=== PATIENT | female | born 1985 | race African-American/Black ===

== ENCOUNTER 2017-05-06 19:21 | Emergency (ER) | payer MEDICAID, OTHER ==
[~2017-05-06] VITALS: Ht 162.6 cm; Wt 47.0 kg
[~2017-05-06 19:21] MED LIST: ALBU17AE27 IH
[2017-05-06] MEDS ORDERED: DiphenhydrAMINE HCL 25 MG CAPSULE PO ONE (20:30)
[2017-05-06 21:41] VITALS: BP 111/70
== END 2017-05-06 21:42 | disposition home or self-care (01) ==
LOC: EMS 19:22
DX: R76.11 Nonspecific reaction to tuberculin skin test without active tuberculosis (principal); J45.909 Unspecified asthma, uncomplicated; F17.210 Nicotine dependence, cigarettes, uncomplicated
CPT/HCPCS: 99283

== ENCOUNTER 2017-06-05 19:24 | Emergency (ER) | payer MEDICAID ==
[~2017-06-05] VITALS: Ht 172.7 cm; Wt 52.3 kg
[2017-06-05] MEDS ORDERED: KETOROLAC TROMETHAMINE 60 MG/2 ML VIAL IM ONE (22:15)
[2017-06-05 22:48] VITALS: BP 129/75
== END 2017-06-05 23:02 | disposition home or self-care (01) ==
LOC: EMS 19:24
DX: S90.122A Contusion of left lesser toe(s) without damage to nail, initial encounter (principal); J45.909 Unspecified asthma, uncomplicated; F17.210 Nicotine dependence, cigarettes, uncomplicated; W22.03XA Walked into furniture, initial encounter; Y93.89 Activity, other specified; Y92.89 Other specified places as the place of occurrence of the external cause; Y99.8 Other external cause status
CPT/HCPCS: 73660; 96372; 99284; J1885

== ENCOUNTER 2017-08-05 16:46 | Emergency (ER) | payer SELFPAY ==
[~2017-08-05] VITALS: Ht 180.3 cm; Wt 52.3 kg
[2017-08-05 17:39] LABS: APPEARANCE,URINE TURBID (CLEAR); BILIRUBIN,URINE NEGATIVE (NEGATIVE); GLUCOSE, URINE (UA) NEGATIVE (NEGATIVE); KETONES,URINE NEGATIVE (NEGATIVE); LEUKOCYTE ESTERASE ,URINE NEGATIVE (NEGATIVE); NITRATE,URINE NEGATIVE (NEGATIVE); OCCULT BLOOD,URINE NEGATIVE (NEGATIVE); PH,URINE 7.5 (5.0-8.0); PROTEIN,URINE NEGATIVE (NEGATIVE)
[2017-08-05] MEDS ORDERED: KETOROLAC TROMETHAMINE 30 MG/ML VIAL IM ONE (18:30)
[2017-08-05] MEDS ORDERED: DIAZEPAM 2 MG TABLET PO ONE (18:30)
[2017-08-05] MEDS ORDERED: HYDROCODONE/ACETAMINOPHEN 5-325 MG TABLET PO ONE (19:15)
[2017-08-05] MEDS ORDERED: LIDOCAINE HCL 5% TRANSDERMAL PATCH TD ONE (19:15)
[2017-08-05 20:10] VITALS: BP 108/66
== END 2017-08-05 20:20 | disposition home or self-care (01) ==
LOC: EMS 16:47
DX: R10.9 Unspecified abdominal pain (principal); M54.5 Low back pain; J45.909 Unspecified asthma, uncomplicated; F17.210 Nicotine dependence, cigarettes, uncomplicated; Z98.890 Other specified postprocedural states
CPT/HCPCS: 81003; 81025; 84703; 96372; 99284; J1885